=== PATIENT | female | born 1965 | race Asian ===

== ENCOUNTER 2025-06-29 13:08 | Emergency (ER) | payer MEDICAID ==
[~2025-06-29] VITALS: Ht 165.1 cm; Wt 91.0 kg
[2025-06-29 13:31] VITALS: O2SAT 98
[2025-06-29] MEDS: IBUPROFEN 600MG TABLET PO ONE (15:06)
[2025-06-29] MEDS: LIDOCAINE HCL/EPINEPHRINE 1%-EPI 1:100,000 20ML VIAL INFIL ONE (15:06)
[2025-06-29] MEDS ORDERED: SULF1TAB48 MT (16:21)
[2025-06-29] MEDS ORDERED: CEPH500C2 MT (16:21)
[2025-06-29 16:53] VITALS: BP 138/80; PULSE 61; RESP 16; TEMP 37.2; O2SAT 100
== END 2025-06-29 17:00 | disposition home or self-care (01) ==
LOC: ER 13:08
DX: L02.212 Cutaneous abscess of back [any part, except buttock and flank] (principal)
CPT/HCPCS: 99283; 10060; J2004

== ENCOUNTER 2025-07-02 09:30 | Emergency (ER) | payer MEDICAID ==
[~2025-07-02] VITALS: Ht 165.1 cm; Wt 91.0 kg
[~2025-07-02 09:30] MED LIST: CEPH500C2 MT; SULF1TAB48 MT
[2025-07-02 09:50] VITALS: TEMP 36.9; O2SAT 97
[2025-07-02] MEDS ORDERED: BO1 TP (11:38)
[2025-07-02 12:03] VITALS: BP 128/62; PULSE 85; RESP 16; O2SAT 100
== END 2025-07-02 12:03 | disposition home or self-care (01) ==
LOC: ER 09:30
DX: Z48.817 Encounter for surgical aftercare following surgery on the skin and subcutaneous tissue (principal); Z79.899 Other long term (current) drug therapy; Z98.890 Other specified postprocedural states
CPT/HCPCS: 99282; Z7610 ×2